=== PATIENT | female | born 1960 | race Caucasian/White ===

== ENCOUNTER → 2020-03-20 19:46 | Outpatient (CLI) | payer MEDICARE ==
[2016-07-20 05:50] VITALS: BMI 38.9
[~2020-03-20 19:46] MED LIST: CARDIZEM120 MG PO; ELIQUIS2.5 MG PO; HCTZ25 MG PO; HYDROCODONE-APA1 TAB PO; LOPRESSOR25 MG PO; LOVASTATIN20 MG PO; MOBIC7.5 MG PO; OXYCODONE HCL5 MG PO; PRILOSEC20 MG PO
[2020-03-20 20:17] LABS: BASOPHILS 0.2 % (0-2); EOSINOPHILS 2.1 % (0-7); HEMATOCRIT 40.9 % (36.0-48.0); HEMOGLOBIN 12.2 g/dL (12-16); IMMATURE GRANULOCYTES 0.2 % (0-5); LYMPHOCYTES 26.9 % (15-50); MCH 23.5 pg (26.0-34.0); MCHC 29.8 g/dL (31.0-37.0); MCV 78.7 fL (80.0-100.0); MEAN PLATELET VOLUME 10.2 fL (7.4-10.4); NEUTROPHILS 64.6 % (40-80); PLATELET COUNT 317 10x3/uL (130-400); RDW 15.9 % (11.5-14.5); WBC 5.2 10x3/uL (4.8-10.8)
[2020-03-20 21:31] LABS: ERYTHROCYTE SEDIMENTATION RATE 44 mm/hr (0-30)
== END | disposition home or self-care (01) ==
LOC: D.LABREF 19:46
PROVIDERS: ATTEND Clinical Nurse Specialist Family Health
DX: M25.562 Pain in left knee (principal)

== ENCOUNTER → 2020-04-01 08:27 | Outpatient (CLI) | payer MEDICARE ==
[2016-07-20 05:50] VITALS: BMI 38.9
== END | disposition home or self-care (01) ==
LOC: D.NM 08:15
PROVIDERS: ATTEND Clinical Nurse Specialist Family Health
DX: Z96.652 Presence of left artificial knee joint (principal)